=== PATIENT | male | born 1950 | race Caucasian/White ===

== ENCOUNTER 2016-04-12 08:00 | Emergency (ER) | payer OTHER ==
[~2016-04-12] VITALS: Ht 185.4 cm; Wt 117.9 kg
[2016-04-12] MEDS ORDERED: SPIRIVA HA1 PUFF/INH IH (08:16)
--- NOTE | 2016-04-12 08:25 | Emergency Room Report ---
History of Present Illness Time Seen by [id number] Presenting Problem in Triage Pt arrived:Walked Presenting Problem:C/O SOA THAT BEGAN LASTNIGHT. PT REPORTS HAS HAD A SORE THROAT X4 DAYS WITH DRY COUGH. 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 N Clinical Suspician of Infection? N Mental Status: 1 - Regular (Normal Baseline) Sepsis Risk:Low Sepsis Risk Have you (or family members/close friends) recently traveled outside the [place]? N If Yes, where/when: Have you had exposure to infectious disease within the past month? N TB? Other? 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 and no chest pain with hx of tob Cardiac Chest Pain Chest pain indicative of cardiac No Timing/Duration this evening Severity moderate ALLERGIES Coded Allergies: No Known Allergies (04/12/16) Home Medications Reported Medications Pregabalin (Lyrica 100Mg) 100 MG PO QID VENLAFAXINE HCL (Venlafaxine) 37.5 MG PO BID NORTRIPTYLINE HCL (Nortriptyline 25MG Cap) 75 MG PO QHS LISINOPRIL (Lisinopril) 10 MG PO DAILY Metoprolol Tartrate (Metoprolol) 25 MG PO DAILY Glipizide (Glipizide 5MG) 5 MG PO BID ALFUZOSIN HCL (Uroxatral) 10 MG PO QHS Cyanocobalamin (Vitamin B-12) (Vitamin B12) 1,000 MCG PO DAILY BUDESONIDE/FORMOTEROL FUMARATE (Symbicort 160-4.5 Mcg Inhaler) 1 PUFF IH DAILY Albuterol Sulfate (Proventil Hfa) 0.09 MG IH Q6HP PRN BREATHING History Medical History General CAD? Yes Angina: No DE: No Hypertension? Yes Hyperlipidemia? Yes CHF? No DVT? No PE? No COPD? Yes Asthma? No Anemia? No GERD? No Gastric ulcers? No GI Bleed? No Hernia? No Thyroid Problems? No Hypothyroidism? No CVA? No Seizures? No Diabetes? Yes Insulin Dependent: No Insulin Pump: No Home FSBS? No Renal Insuffiency? No End Stage Renal Disease? No UTI? No Stones? No GB Disease: No Nephritic Syndrome? No Asplenia? No Hepatitis? No Sickle Cell Disease? No Arthritis? No Migraines? No Cataracts? No Glaucoma? No MRSA? No HIV? No TB? No Anxiety? No Depression? No Cancer? No More? Yes Additional hx: NEUROPATHY IN LEGS Immunization Hx DT/Tetanus Unknown Surgical Hx Previous Surgery?Y [id number] BYPASS TONSILS Social History Smoking Hx Smoker: Current Every Day Smoker Tobacco: Yes Type Cigarettes Alcohol Alcohol: No Drugs none Additionial History Additional History has sx suggestive of roxy Review of Systems All Other Systems Reviewed and Negative Constitutional denies fever Eyes denies drainage ENT throat pain. denies: ear discharge, epistaxis, throat swelling. Respiratory cough, shortness of breath, denies wheezing Cardiovascular denies chest pain, denies syncope Gastrointestinal denies abdominal pain, denies diarrhea, denies vomiting Genitourinary denies: dysuria, frequency, hesitancy, hematuria. Musculoskeletal denies back pain, denies joint pain, denies joint swelling, denies neck pain Skin denies rash Psychiatric/Neurological denies headache, denies seizure Physical Exam Vital Signs Vital Signs Date Time Temp Pulse Resp B/P Pulse O2 O2 Flow FiO2 Ox Delivery Rate 04/12 1019 99.4 69 20 133/71 93 04/12 0932 64 20 125/69 96 2 04/12 0819 62 22 155/46 94 2 04/12 0804 82 04/12 0804 98.2 70 22 154/87 82 - WBC >12,000 or <4,000 or 10% bands? 2 or more SIRS Criteria Met? B/P:133/71 MAP:109 Creatinine >2.0? UA output<0.5ml/kg/hr for 2 hrs? Platelet count >100,000? Lactate >2.0mmol/1? INR >1.2 or PTT > than 60 sec? Evidence of Organ Dysfunction? Provider documented clinical suspician of infection? N Sepsis Criteria Count: 1 Sepsis Risk: Low Sepsis Risk General Appearance no apparent distress Eye Exam - bilateral eye PERRL, bilateral eye EOMI Ear, Nose, Throat normal ENT inspection Neck supple Respiratory Status No: respiratory distress. Lung Sounds bilateral: rhonchi. 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 No Results/Orders Laboratory Tests 04/12/16 1010: Troponin I < 0.02 04/12/16 0822: Sodium 127 L, Potassium 4.1, Chloride 92 L, Carbon Dioxide 29, BUN 19 H, Creatinine 1.1, Estimated Creat Clear 115, Estimated GFR (MDRD) 68, Glucose 149 H, Calcium 8.6, Total Bilirubin 0.4, AST 15, ALT 27, Alkaline Phosphatase 95, Creatine Kinase 231, CK-MB (CK-2) Rel Index 2.5, CK and CKMB Interp 5.7 H, Troponin I < 0.02, B-Natriuretic Peptide 101 H, Total Protein 7.8, Albumin 3.7, Globulin 4.1 H, Albumin/Globulin Ratio 0.9 L, WBC 10.4, RBC 5.02, Hgb 14.9, Hct 43.8, MCV 87.1, RDW 15.7, Plt Count 260, MPV 6.3 L, Gran % 77.5, Gran # 8.1 H, Lymphocytes % 12.9, Monocytes % 7.4, Eosinophils % 1.8, Basophils % 0.4, Lymphocytes # 1.4, Monocytes # 0.8, Eosinophils # 0.2, Basophils # 0.0, PUBS MCHC 34.1, MCH 29.7 Current Medication Orders Sig/Mendel Start time Last Medication Dose Route Stop Time Status Admin Albuterol 2.5 MG ONCE ONE 04/12 1230 AC INH 04/12 1231 Albuterol 2 PUFFS ONCE ONE 04/12 1230 AC IH 04/12 1231 Methylprednisolone 125 MG ONCE ONE 04/12 1230 AC Sodium Succinate IV 04/12 1231 Miscellaneous 1 UNIT ONCE ONE 04/12 1230 AC XX 04/12 1231 Albuterol 0 .STK-MED ONE 04/12 1228 DC IH Furosemide 40 MG ONCE ONE 04/12 0845 DC 04/12 IV 04/12 0846 0841 Furosemide 0 .STK-MED ONE 04/12 0839 DC .ROUTE Sodium Chloride 10 ML PRN PRN 04/12 0815 AC IV 04/13 0803 Orders Procedure Date/time Status RT REQUEST ALBUTEROL INHALER 04/12 1227 Active RT REQUEST ALBUTEROL NEB 04/12 1227 Active TROPONIN I 04/12 1003 Complete OXYGEN PER NURSE 04/12 0820 Active ELECTROCARDIOGRAM REQUEST 04/12 0803 Active IV SALINE LOCK 04/12 0803 Active COMPLETE METABOLIC PANEL 04/12 0803 Complete CBC WITH AUTO DIFF 04/12 0803 Complete CARDIAC ENZYMES 04/12 0803 Complete BRAIN NATRIURETIC PEPTIDE 04/12 0803 Complete 12 LEAD EKG-RAN (INITIAL) 04/12 UNK Active 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 ST/Twave chgs XRAY/CT/US XRAY/CT/US XRAY chest XR interpretation by reviewed by me Xray Results normal/NAD Departure Departure Time of Disposition 1033 Disposition DC Home or Self Care(routine) Clinical Impression Primary Impression: COPD exacerbation Condition STABLE Patient Instructions DI for Chronic Obstructive Pulmonary Disease Additional Instructions use meds and call your pcp in am for close follow up Discharge Counseling Counseled pt/family regarding diagnosis, test results, medications/RX, follow up needs Prescriptions Current Visit Scripts BUDESONIDE/FORMOTEROL FUMARATE (Symbicort 160-4.5 Mcg Inhaler) 1 PUFF IH BID #1 INH ED Critical Care Critical Care No at [id number]
[2016-04-12 08:31] LABS: HEMOGLOBIN 14.9 g/dL (14.1-18.0); LYMPH # 1.4 K/mm3 (0.7-4.5); LYMPH % 12.9 % (10-50)
[2016-04-12 08:53] LABS: BUN 19 mg/dL (7-18); GFR (ESTIMATED) 68 ML/MIN (>60)
[2016-04-12] MEDS ORDERED: LYRICA 100 MG100 MG PO (09:08)
[2016-04-12] MEDS ORDERED: VENLAFAXINE37.5 MG PO (09:09)
[2016-04-12] MEDS ORDERED: NORTRIPTYLINE H25 M1 PO (09:17)
[2016-04-12] MEDS ORDERED: LISINOPRIL 20MG20 MG PO (09:18)
[2016-04-12] MEDS ORDERED: METOPROLOL50 MG PO (09:19)
[2016-04-12] MEDS ORDERED: GLIPIZIDE 5MG TA5 MG PO (09:20)
--- NOTE | 2016-04-12 09:24 | RADIOLOGY REPORT PS360 ---
CHEST(2 VIEWS-NOT PORTABLE) COMPARISON: None HISTORY: Shortness of breath TECHNIQUE: PA and lateral chest FINDINGS: Emphysematous changes are noted with hyperexpansion lung dunbar and flattening of the hemidiaphragms. Cardiac size is borderline, there are sternal wire sutures and surgical clips from previous bypass procedure. The vascularity is normal and is no pleural fluid. The bony thorax appears normal. IMPRESSION: Mild COPD, borderline cardio megaly, no acute chest pathology noted
[2016-04-12] MEDS ORDERED: UROXATRAL10 MG PO (09:25)
[2016-04-12] MEDS ORDERED: VITAMIN B122500 MC1 PO (09:27)
[2016-04-12] MEDS ORDERED: SYMBICORT1 AE1 IH ×2 (09:28→12:29)
[2016-04-12] MEDS ORDERED: PROVENTIL0.09 MG/Ac IH (09:29)
[2016-04-12 12:50] VITALS: BP 142/71
== END 2016-04-12 12:50 | disposition home or self-care (01) ==
LOC: ER 08:00
PROVIDERS: Emergency Medicine
DX: J44.1 Chronic obstructive pulmonary disease with (acute) exacerbation (principal); I10 Essential (primary) hypertension; E11.9 Type 2 diabetes mellitus without complications